=== PATIENT | male | born 1940 | race American Indian/Alaskan Native ===

== ENCOUNTER 2017-01-06 10:25 | Outpatient (CLI) | payer OTHER ==
[2017-01-06] MEDS ORDERED: NACL ONE (11:03)
--- NOTE | 2017-01-06 14:56 | Cat Scan Report ---
CT ABDOMEN WITH AND WITHOUT CONTRAST HISTORY: Bilateral renal cysts. FINDINGS: No relevant comparison. Bilateral renal cysts are identified. There are approximately 4 or 5 cysts in the right kidney the largest cyst measures 11 cm at the inferior pole. The remaining cysts measure 2-3 cm in diameter. There is a 2.3 cm hemorrhagic cyst in the mid left kidney. 2 additional subcentimeter left renal cysts are also noted. There is no evidence for suspicious renal mass, hydronephrosis or perinephric fluid. The visualized ureters are unremarkable. The liver, biliary system, pancreas, spleen and adrenal glands are within normal limits. There is no evidence for bowel obstruction. There are moderate atherosclerotic plaques throughout the abdominal aorta. IMPRESSION: Bilateral renal cysts as described. There are approximately 5 cysts in the right kidney which have a simple appearance. 2.3 cm hemorrhagic cyst in the left kidney.
== END 2017-01-06 10:26 | disposition home or self-care (01) ==
LOC: CT 10:25
PROVIDERS: ATTEND Internal Medicine
DX: N28.1 Cyst of kidney, acquired (principal); I10 Essential (primary) hypertension; I70.0 Atherosclerosis of aorta
CPT/HCPCS: 36415; 74170; 82565; 84520; Q9967